=== PATIENT | female | born 1985 | race African-American/Black ===

== ENCOUNTER 2022-09-12 14:25 | Emergency (ER) | payer BC ==
--- OUTSIDE RECORDS SUMMARY | 2022-09-12 14:28 | XMS REPORT | Continuity of Care Document ---
:1985 Author Organization [facility] t Address [address] [place] [address] Care Team Providers Name Role Phone Daniel Jolly A Attending Clinician Unavailable Daniel Jolly A Admitting Clinician Unavailable Physician, No Primary or Family Admitting Clinician Unavaila ble Payers Payer Name Policy Type Policy Number Effective Date Expiration Date S ource Problems This patient has no known problems. Allergies, Adverse Reactions, Alerts Allergy Allergy Status Severity Reaction(s) Onset Inactive Treating Comm ents Source Name Type Date Date Clinician No Known DA Active U 2020-0 [facility] 00:[facility]: e 00 [facility] No Known DA Active U 2020-0 [facility] 00:[facility]: e 00 [facility] No Known DA Active U 2019-0 [facility] 00 [facility] No Known DA Active U 2019-0 [facility] [address] [place] [address] No Known DA Active U 2015- [facility] [address] [place] [address] Medications This patient has no known medications. Procedures Procedure Date / Time Performed Performing Clinician Radha castillo [id number] 2020-02-11 00:00:00 JOSSELIN [facility] [id number] 2020-02-11 00:00:00 JOSSELIN [facility] [id number] 2020-02-11 00:00:00 JOSSELIN ELY [facility] Encounters Start End Encounter Admission Attending Care Care Encounter Source Date/Time Date/Time Type Type Clinicians Facility Department ID 2020-02-11 Inpatient LLOYD Jolly JACQUE [id number] [facility] 08:53:00 [facility] 2019-09-16 Inpatient LLOYD Bates RADI [id number] [facility] 15:00:00 [facility] 2020-08-04 2020-08-04 Outpatient SOLIS BatesBM ALDAIR [id number] [facility] 12:00:00 12:00:00 Daniel 42 [facility] Results Test Description Test Time Test Comments Results Result Comments Source HIV 1 RNA PCR QUANT 2020-02-17 12:54:00 Test Item Value Reference Range Interpretation Comme nts HIV 1 RNA PCR (LOG 10) (test code TNP () INFCE Result Units: ctb66pcoh/mLUnable to = CYWAHZ60) calculate resul t since non-numeric resultobtained for component test.Performed At: Lab[address] [id number] ra Eric RODRIGUEZ Ph:[phone] HIV-1 RNA BY PCR, QUANT (test code <20 () INFCE Result Units: copies/mLHIV-1 RNA not = HIVRNAPCRT) detectedThe re portable range for this assay is 20 to 10,000,000copies HIV-1 RNA/mL. IS CONSENT FORM SIGNED FOR HIV TESTING? YCD4 HELPER T-CELL [id number] 14:40:00 Test Item Value Reference Range Interpretation Comments LYMPHOCYTE ABSOLUTE ST (test 1.2 x10E3/uL 0.7-3.1 code = LYMPHA) CD4CD8 RATIO (test code = 0.77 0.92-3.72 L CD4CD8) PERCENT CD4 HELPER CELLS (test 35.1 % 30.8-58.5 code = CD4P) ABSOLUTE CD4+ CELLS (test code = 421 /uL 359-1519 CD4A) % CD8 (SUPPRESOR T-CELLS) (test 45.3 % 12.0-35.5 H code = CD8P) ABSOLUTE CD8+ CELLS (test code = 544 /uL 109-897 CD8A) HGB [id number] 04:41:00 Test Item Value Reference Range Interpretation Comments HEMOGLOBIN (test code = HGB) 10.9 g/dL 10.7-13.9 N HEMATOCRIT (test code = HCT) 33.1 % 32.1-42.1 N AG HEPATITIS B [id number] 11:05:00 Test Item Value Reference Range Interpretation Comments AG HEPATITIS B SURFACE (test code NONREACTIVE NONREACTIVE = HBSAG) AB HEPATITIS C [id number] 11:05:00 Test Item Value Reference Range Interpretation Comments AB HEPATITIS C (test code = NONREACTIVE NONREACTIVE HCVAB) SIGNAL TO CUTOFF (test code = 0.10 <0.80 N CUTOFF) AB [id number] 11:05:00 Test Item Value Reference Range Interpretation Comments AB TREPONEMA (test code = TREPAB) NONREACTIVE NONREACTIVE AG HEPATITIS B [id number] 10:49:00 Test Item Value Reference Range Interpretation Comments AG HEPATITIS B SURFACE (test code NONREACTIVE NONREACTIVE = HBSAG) AB HEPATITIS C [id number] 10:49:00 Test Item Value Reference Range Interpretation Comments AB HEPATITIS C (test code = HCVAB) NONREACTIVE SIGNAL TO CUTOFF (test code = CUTOFF) <0.80 AB [id number] 10:49:00 Test Item Value Reference Range Interpretation Comments AB TREPONEMA (test code = TREPAB) NONREACTIVE NONREACTIVE Coronavirus 2018 nCoV [id number] 10:29:00 Test Item Value Reference Range Interpretation Comments Coronavirus 2019 Negative Negative RESULTS CA LLED TO [facility] Bedside (test MREAD CLARK K & CONFIRMED? code = YESBY F.LAB.ELB 1 02/11/20 COVNONPUIBED) 1029 This resu lt does not rule out co-inf ections with otherpatho gens. * False negative results may occur if a spec imen isimproperly co llected, transported or handled. False negativer esults may also occur if amplification i nhibitors arepresent in t he specimen or if inadequat e levels of virusesare pres ent in the specimen. Negat jose results should beconsid ered in the context of a pa tient's recent exposure s,history and the presenc e of clinical signs and symptomsconsist ent with COVID-19. * Neg ative results should be treated as presumptive andtested with an alterna tive FDA authorized mole cular assayif necessa ry for clinical managm ent, including infectioncontro l. * As with any molecu lar test,mutations within the target regions Huynh ID NOW COVID-[address] could affect primeran d/or probe binding resulti ng in failure to dete ct therescence of the virus.TEST PERF ORMED UNDER AN EMERGENCY US E AUTHORIZATION F ROM FDA CBC W/AUTO [id number] 09:53:00 Test Item Value Reference Range Interpretation Comments WHITE BLOOD CELL (test code = WBC) 12.4 K/mm3 6.6-12.1 H RED BLOOD CELL (test code = RBC) 3.97 M/mm3 3.45-5.01 N HEMOGLOBIN (test code = HGB) 12.8 g/dL 10.7-13.9 N HEMATOCRIT (test code = HCT) 37.8 % 32.1-42.1 N MEAN CELL VOLUME (test code = MCV) 95 fL 84.1-94.8 H MEAN CELL HGB (test code = MCH) 32.2 pg 27-35 N MEAN CELL HGB CONCETRATION (test 33.9 gm/dL 32.2-34.1 N code = MCHC) RED CELL DISTRIBUTION WIDTH (test 12.1 % 12.4-16.5 L code = RDW) PLATELET COUNT (test code = PLT) 223 K/mm3 133-385 N MEAN PLATELET VOLUME (test code = 11.9 fl 9.1-12.7 N MPV) NEUTROPHIL % (test code = NT%) 76.0 % 56.5-79.4 N LYMPHOCYTE % (test code = LY%) 16.7 % 14.3-34.3 N MONOCYTE % (test code = MO%) 6.0 % 5.1-10.4 N EOSINOPHIL % (test code = EO%) 0.3 % 0.1-3.0 N BASOPHIL % (test code = BA%) 0.2 % 0.1-1.0 N NEUTROPHIL # (test code = NT#) 9.4 K/mm3 LYMPHOCYTE # (test code = LY#) 2.1 K/mm3 MONOCYTE # (test code = MO#) 0.8 K/mm3 EOSINOPHIL # (test code = EO#) 0.04 K/mm3 BASOPHIL # (test code = BA#) 0.0 K/mm3 RBC MORPHOLOGY REQUIRED (test code NORMAL NORMAL = RBCM) PLATELET MORPHOLOGY REQUIRED (test NORMAL NORMAL code = PLTMR) - US FLW [id number] 16:29:00 Patient Name: JÚNIOR JONAS Unit No: [id number] EXAMS: CPT CODE: [id number] US FLW [id number] [facility] [address], [place] [address] OBSTETRICAL ULTRASOUND REPORT Pat. Name: JÚNIOR JONAS Pat.No: [id number] Study Date: 02/05/2020 3:33pm , Age: 08 1985, 34 Pregnancies: 3, Para 2LMP: Unknown GA by 1st: 38w0d GA by US: 37w1d GA Selected: 38w0d (From Known E) RUTHIE: 02/19/2020 Refer ring MD: DANIEL JOLLY [employer] Leadership: Nuris Quintero RDMS CPT4: USPREGFU Admitting MD: DANIEL JOLLY Hist/Ind: 2ND SCAN 38WKS POSISTION MEASUREMENTS AGE GROWTH EVALUATION Measurement GA Range Srce %for GA Ratios ----- ---- ------- BPD 9.1 cm 37w3d (54q1w-47a5h)Hadl BPD 42% FL/BPD 0.80 (0.71 - 0.87) HC 32.3 cm 36w0d (28d9r-27f8a) Hadl HC 14% FL/AC 0.20 (0.20 -0.24) APD 11.5 cm APD HC/AC 0.90 (0.90 - 1.09) TAD 11.3 cm TAD CI 0.85 (0.70 - 0.86) AC 35.8 cm 40w0d (50y8q-43l5g) Hadl AC 86% FL 7.3 cm 37w2d (45e3v-44g1c) Hadl FL 39% HL 6.6 cm 38w2d (31c4g-67t6d) Dc HL 55% GA for sonogram 37w1d (65e6k-43i9c) Weight Estimate: based on (BPD,HC,AC,FL) HadlockWeight: 3505 gm (0811-5469) Hadlo : 7lbs, 11oz Normal: 3030 gm (4647-8957) Brenn Wt% 83% for 38.0 wks Heart Rate: 137 bpm Amniotic Fluid Index: 12.7cm (07.3-23.9) Q1: 0.0cm Q2: 5.5cm Q3: 1.6cm Q4: 5.6cm CLINICAL SUMMARY Typeof Gestation: Harris Intrauterine in vertex presentation. size is borderline large for gestational age. growth: Borderline LGA fetus (75%-90%) motion and organs seen: somatic activity observed body and limb movements seen Regular cardiac rhythm observed abnormalities observed: KIDNEYS APPEAR WITHIN NORMAL LIMITS Placental location: [facility] NAME: JÚNIOR JONAS Radiology Department PHYS: Daniel Narvaez MD [address] : 1985 AGE: 34 SEX: F [place], [place] [address] LOC: F.RAD PHONE #: [phone] EXAM DATE: 02/05/2020 STATUS: REG CLI FAX #: [phone] RAD NO: Page 1 Signed Report (CONTINUED) Patient Name: JÚNIOR JONAS Unit No: [id number] EXAMS: CPT CODE: [id number] [place] [address] (Continued) Anterior Placental maturity : Grade 2 There is no evidence of placenta previa. Amniotic fluid volume is normal. Uterus and adnexa: No significant abnormality is seen. Thank you for allowing us to participate in the care of this patient. Annamarie Lopez M.D. Electronic Signature 02/05/2020 04:29pm at 1629 Reported and signed by: Carrol Lopez MD CC: Daniel Jolly Technologist: Nuris Quintero RDMS Probe: Trnscrbd D/ (1629) t.SDR.CER Orig Print D/T: S: 02/05/2020 (3518) [facility] NAME: JÚNIOR JONAS KORINA Radiology Department PHYS: Daniel Narvaez MD [address] : 1985 AGE: 34 SEX: F [place], [place] [address] LOC: ArlinRAD PHONE #: [phone] EXAM DATE: 02/05/2020 STATUS: REG CLI FAX #: [phone] RAD NO: Page2 Signed Report Patient Name: JÚNIOR JONAS Unit No: [id number] EXAMS: CPT CODE: [id number] [place] [address] (Continued) [facility] NAME: PRITESHJÚNIOR Radiology Department PHYS: Daniel Narvaez MD [address] : 1985 AGE: 34 SEX: F [place], [place] [address] LOC: ArlinRAD PHONE #: [phone] EXAM DATE: 02/05/2020 STATUS: REG CLI FAX #: [phone] RAD NO: Page 3 Signed Report- US PREG AFTER [id number] 17:57:00 Patient Name: JÚNIOR JONAS Unit No: [id number] EXAMS: CPT CODE: [id number] US PREG AFTER TRI [address] [facility] [address], [place] [address] OBSTETRICAL ULTRASOUND REPORT Pat. Name: JÚNIOR JONAS Pat. No: [id number] Study Date: 09/16/2019 3:55pm , Age: 08 1985, 34 LMP: Unknown GA by US: 18w1d GA Selected: 17w5d (From Known E) RUTHIE: 02/19/2020 Referring MD: DANIEL JOLLY [employer]: Iraida Medel RDMS CPT4: [id number] Admitting MD: DANIEL JOLLY Hist/Ind: SCAN 1 17WKS SIZE@DATES ----- MEASUREMENTS AGE GROWTH EVALUATION Measurement GA Range Srce %for GA Ratios ----- ---- ------- BPD 3.9 cm 17w5d (99y3w-62z1u) Hadl BPD 49% FL/BPD 0.69 HC 14.9 cm 17w6d (08u5q-76l4y) Hadl HC 56% FL/AC 0.20 APD 4.3 cm APD HC/AC 1.10 (1.08 - 1.27) TAD 4.3 cm TAD CI 0.77 (0.70- 0.86) AC 13.5 cm 18w5d (50k9s-38b8u) Hadl AC 71% FL 2.7 cm 17w6d (92a2k-63n5y) Hadl FL 58% HL 2.7 cm 18w4d (22v0u-30a0x) Dc HL 65% GA for sonogram 18w1d (29j0q-05c5u) Weight Estimate: based on (BPD,HC,AC,FL) Hadlock Weight: 245 gm (209-280) Hadlock : 0lbs, 8oz Cervical Length: 3.6 cm Heart Rate: 151 bpm CLINICAL SUMMARY Type of Gestation: Harris Intrauterine in breech presentation. size is appropriate for gestational age. motion and organs seen: heart motion seen body and limbmovements seen Four chamber heart observed Left ventricular outflow tract (LVOT) seen Right ventricular outflow tract (RVOT) seen Umbilical cord insertion in fetus seen stomach, Renal Fossa, Bladder and Spine seen Three vessel umbilical cord noted abnormalities observed: Bilateral renal pelviectasis 4 mm left and right Placental location: Anterior Placental maturity : Grade 1 Thereis no evidence of placenta previa. [facility] NAME: JÚNIOR JONAS Radiology Department PHYS: Daniel Narvaez MD [address] : 1985 AGE: 34 SEX: [place] [address] LOC: ArlinRAD PHONE #: [phone] EXAM DATE: 09/16/2019 STATUS: REG [place] #: [phone] RAD NO: Page 1 Signed Report (CONTINUED) Patient Name: JÚNIOR JONAS HUI Unit No: [id number] EXAMS: CPT CODE: [id number] US PREG AFTER 1ST TRI [address]5789 (Continued) Amniotic fluid volume is normal. Uterus and adnexa: No significant abnormality is seen. 'FU US is advised Norma Talley M.D. Electronic Signature 09/16/2019 05:57pm at 1757 Reported and signed by: Norma Talley MD CC: Daniel Jolly Technologist: Iraida Medel RDMS Probe: Trnscrbd D/ (1756) t.KATHLEENR.NMG Orig Print D/T: S: 09/16/2019 (1755) [facility] NAME: JÚNIOR JONAS Radiology Department PHYS:Daniel Narvaez MD [address] : 1985 AGE: 34 SEX: F [place] [address] LOC: ArlinRAD PHONE #: [phone] EXAM DATE: 09/16/2019 STATUS: REG CLI FAX #: [phone] RAD NO: Page 2 Signed Report Patient Name: JÚNIOR JONSA Unit No: [id number] EXAMS: CPT CODE:[id number] US PREG AFTER 1ST TRI [address]3533 (Continued) [facility] NAME: BRIANNA JONAS Radiology Department PHYS: Daniel Narvaez MD [address] : 1985 AGE: 34 SEX:F [place] [address] LOC: Lorin.RAD PHONE #: [phone] EXAM DATE: 09/16/2019 STATUS: REG CLI FAX #: [phone] RAD NO: Page 3 Signed ReportCERVIX [id number] 14:15:00 RUN DATE: 11/01/18 [facility] PAGE 1 RUN TIME: 1534 Specimen Inquiry RUN USER: INTERFACE --PATIENT: JÚNIOR JONAS LOC: VIVEK U #: [id number] AGE/SX: 33/F ROOM: RE10/26/18REG DR: Daniel Jolly MD : [birth year] BED: DIS: STATUS: [facility] TLOC: SPEC #: [id number] RECD: 10/26/18 STATUS: POPEYE GRANADOS #: [id number] PUNEET: 10/26/18- SUBM DR: Daniel Jolly MD ENTERED: 10/26/18 SP TYPE: CERVCON OTHR DR: ORDERED: LEVEL V SURGICA CODES: [id number] - UTERINE CERVIX PROCEDURES: LEVEL V SURGICA (Incomplete) TISSUES: UTERINE CERVIX, NOS - CERVICAL CONE BX STITCH AT 12:00 CLINICAL HISTORY 33 year old, high-grade dysplasia of cervix, HIV+ (wpd) FINAL DIAGNOSIS Cervix, cone biopsy: - high-gradesquamous intraepithelial lesion (MALACHI 3) with endocervical gland involvement present in the right half portion of the cone (6:00 to 12:00) - ectocervical margin focally positive for high grade dysplasiaat 6:00 - 8:00 - all other exocervical margins negative for high grade dysplasia - all endocervical biopsy margins negative for high grade dysplasia - chronic inflammation - P16 immunostain performed on blocks A, B, C, and E COMMENT: The technical components were performed at [facility] [place], [address] [place] [address], [address], [place] [address]. The interpretation is provided by [facility], [address] [place] [address]. Controls received from [facility] stained appropriately. Tissue code 1 CPT code(s): 09801, 68189-15, 75472-57 x3 cds/kr dt: 10/31/18 cds/wpd dT;11/01/18 GROSS DESCRIPTION ANATOMIC SOURCE OF TISSUE (per Requisition): Cervical cone biopsy, stitch@ 12:00, HIV+ The specimen is received in a formalin-filled container, labeled with the patient's name and designated "cervical cone biopsy, stitch @ 12:00". The specimen consists of a C-shaped portionof 4 x 1.5 x 0.7 cm red cervical mucosa with underlying tissue. The margin is inked black and endocervical margin is inked red. It is CONTINUED ON NEXT PAGE RUN DATE: 11/01/18 [facility] PAGE 2 RUN TIME: 1534 Specimen Inquiry RUN USER: INTERFACE SPEC #: [id number] PATIENT: JÚNIOR JONAS #[id number] (Continued) GROSS DESCRIPTION (Continued) sectioned and submitted in toto in A - 12:00 to 2:00, B - 2:00 to 4:00, C - 4:00 to 6:00, D - 6:00 to 8:00, E - 8:00 to 10:00 and F - 10:00 to 12:00. hz/wpd 10/26/18 MICROSCOPIC DESCRIPTION There is high grade dysplasia (MALACHI 3) with endocervical gland involvementin the right half portion of the cone (6:00 to 12:00). The exocervical margin at 6:00 to 8:00 is focally positive for high grade dysplasia. All other exocervical margins and all endocervical margins are negative for high grade dysplasia. P16 immunsotains are performed on blocks A, B, C, and E and support the diagnosis given below. madeline/diony dt: [id number] Signed Urban Fox 11/01/18 1415 END OF REPORT CHEMISTRY 7 [id number] 12:54:00 Test Item Value Reference Range Interpretation Comments SODIUM (test code = NA) 138 mEq/L 135-145 N POTASSIUM (test code = K) 4.5 mEq/L 3.5-5.0 N CHLORIDE (test code = CL) 104 mEq/L 100-115 N CARBON DIOXIDE (test code = CO2) 28 mEq/L 22-31 N ANION GAP (test code = GAP) 10.20 10-20 N GLUCOSE (test code = GLU) 92 mg/dL 65-110 N BLOOD UREA NITROGEN (test code = 10 mg/dL 7-18 N BUN) GLOMERULAR FILTRATION RATE (test 128 ml/min >60 N code = GFR) CREATININE (test code = CREAT) 0.6 mg/dL 0.5-1.0 N CALCIUM (test code = CA) 9.0 mg/dL 8.4-10.2 N HCG SERUM [id number] 12:54:00 Test Item Value Reference Range Interpretation Comments HCG SERUM QUAL (test code = HCGQL) NEGATIVE CHEMISTRY 7 [id number] 12:53:00 Test Item Value Reference Range Interpretation Comments SODIUM (test code = NA) mEq/L 135-145 POTASSIUM (test code = K) mEq/L 3.5-5.0 CHLORIDE (test code = CL) mEq/L 100-115 CARBON DIOXIDE (test code = CO2) mEq/L 22-31 ANION GAP (test code = GAP) 10-20 GLUCOSE (test code = GLU) mg/dL 65-110 BLOOD UREA NITROGEN (test code = BUN) mg/dL 7-18 CREATININE (test code = CREAT) mg/dL 0.5-1.0 CALCIUM (test code = CA) mg/dL 8.4-10.2 HCG SERUM [id number] 12:53:00 Test Item Value Reference Range Interpretation Comments HCG SERUM QUAL (test code = HCGQL) NEGATIVE CBC W/AUTO [id number] 12:43:00 Test Item Value Reference Range Interpretation Comments WHITE BLOOD CELL (test code = WBC) 6.6 K/mm3 6.6-12.1 N RED BLOOD CELL (test code = RBC) 4.17 M/mm3 3.45-5.01 N HEMOGLOBIN (test code = HGB) 12.9 g/dL 10.7-13.9 N HEMATOCRIT (test code = HCT) 39.6 % 32.1-42.1 N MEAN CELL VOLUME (test code = MCV) 95 fL 84.1-94.8 H MEAN CELL HGB (test code = MCH) 30.9 pg 27-35 N MEAN CELL HGB CONCETRATION (test 32.6 gm/dL 32.2-34.1 N code = MCHC) RED CELL DISTRIBUTION WIDTH (test 12.4 % 12.4-16.5 N code = RDW) PLATELET COUNT (test code = PLT) 199 K/mm3 133-385 N IMMATURE PLATELET FRACTION (test 0.0 % 0.0-10.8 N code = IPF) MEAN PLATELET VOLUME (test code = 12.6 fl 9.1-12.7 N MPV) NEUTROPHIL % (test code = NT%) 56.5 % 56.5-79.4 N LYMPHOCYTE % (test code = LY%) 36.0 % 14.3-34.3 H MONOCYTE % (test code = MO%) 5.3 % 5.1-10.4 N EOSINOPHIL % (test code = EO%) 1.5 % 0.1-3.0 N BASOPHIL % (test code = BA%) 0.5 % 0.1-1.0 N NEUTROPHIL # (test code = NT#) 3.7 K/mm3 LYMPHOCYTE # (test code = LY#) 2.4 K/mm3 MONOCYTE # (test code = MO#) 0.4 K/mm3 EOSINOPHIL # (test code = EO#) 0.10 K/mm3 BASOPHIL # (test code = BA#) 0.0 K/mm3 RBC MORPHOLOGY REQUIRED (test code NORMAL NORMAL = RBCM) PLATELET MORPHOLOGY REQUIRED (test NORMAL NORMAL code = PLTMR)
--- NOTE | 2022-09-12 17:16 | EDPHYS ---
Physician Documentation [facility] Name: Jose Calvert Age: 37 yrs Sex: Female : 1985 Arrival Date: 09/12/2022 Time: 14:26 Bed 9 Private MD: CHRISTI Physician Darcy Orellana HPI: 09/12 16:00 This 37 yrs old Black Female presents to ER via Ambulatory with complaints of Allergic jh7 Reaction. 16:00 The patient presents with difficulty swallowing, itching. Onset: The symptoms/episode jh7 began/occurred 2 day(s) ago. Associated signs and symptoms: Pertinent negatives: chest pain, fever, rash, shortness of breath, swelling, Syncope. Possible causes: shellfish. At home the patient or guardian has treated the symptoms with nothing. The patient states that she ate some shrimp on [place]. States that over the past few years she has noticed that her throat becomes itchy after eating shrimp. Reports that her uvula is slightly on enlarged, her throat is itchy, and she has some mild difficulty swallowing. Denies any shortness of breath or chest pain.. MUSEUM LIBRARIAN: 17:04 LMP N/A - Irregular menses ap3 Historical: - Allergies: 15:56 SHELLFISH; ss - Home Meds: 15:56 None [Active]; ss - Immunization history:: Client reports receiving the 2nd dose of the Covid vaccine. - Social history:: Smoking status: Patient denies any tobacco usage or history of. ROS: 16:00 Constitutional: Negative for fever, chills, and weight loss, Eyes: Negative for injury, jh7 pain, redness, and discharge, Neck: Negative for injury, pain, and swelling, Cardiovascular: Negative for chest pain, palpitations, and edema, Respiratory: Negative for shortness of breath, cough, wheezing, and pleuritic chest pain, Abdomen/GI: Negative for abdominal pain, nausea, vomiting, diarrhea, and constipation, Back: Negative for injury and pain, MS/Extremity: Negative for injury and deformity, Skin: Negative for injury, rash, and discoloration, Neuro: Negative for headache, weakness, numbness, tingling, and seizure. 16:00 ENT: Positive for sinus pain. 16:00 All other systems are negative. Exam: 16:00 ENT: Posterior pharynx: Uvula: Uvula appears mildly enlarged. No other airway [facility] swelling, drooling, or any signs of obstruction noted.. 18:38 Head/Face: Normocephalic, atraumatic. Neck: Trachea midline, no thyromegaly or masses jh7 palpated, and no cervical lymphadenopathy. Supple, full range of motion without nuchal rigidity, or vertebral point tenderness. No Meningismus. Cardiovascular: Regular rate and rhythm with a normal S1 and S2. No gallops, murmurs, or rubs. Normal PMI, no JVD. No pulse deficits. Respiratory: Lungs have equal breath sounds bilaterally, clear to auscultation and percussion. No rales, rhonchi or wheezes noted. No increased work of breathing, no retractions or nasal flaring. Abdomen/GI: Soft, non-tender, with normal bowel sounds. No distension or tympany. No guarding or rebound. No evidence of tenderness throughout. Skin: Warm, dry with normal turgor. Normal color with no rashes, no lesions, and no evidence of cellulitis. MS/ Extremity: Pulses equal, no cyanosis. Neurovascular intact. Full, normal range of motion. Neuro: Awake and alert, GCS 15, oriented to person, place, time, and situation. Motor strength 5/5 in all extremities. Sensory grossly intact. Normal gait. Vital Signs: 15:51 BP 144 / 83; Pulse 78; Resp 16; Temp 97.8(TE); Pulse Ox 100% on R/A; Weight 81.65 kg; ss Height 5 ft. 6 in. (167.64 cm); Pain 8/10; 15:51 Body Mass Index 29.05 (81.65 kg, 167.64 cm) MDM: 14:28 Patient medically screened. [facility] 17:10 Differential diagnosis: anaphylaxis, angioedema, urticaria, Allergic reaction. Data [facility] reviewed: vital signs, nurses notes. Data interpreted: Pulse oximetry: is 100 %. Interpretation: normal. Counseling: I had a detailed discussion with the patient and/or guardian regarding: the historical points, exam findings, and any diagnostic results supporting the discharge/admit diagnosis, to return to the emergency department if symptoms worsen or persist or if there are any questions or concerns that arise at home. Response to treatment: the patient's symptoms have resolved after treatment. ED course: Patient symptoms resolved after medication administration. She was advised to only start steroid pack tomorrow morning if symptoms returned. ER precautions given if she develops shortness of breath, inability to swallow, or any other concerning symptoms. The patient understood the plan of care.. Administered Medications: 17:02 Drug: SOLU-Medrol (methylPREDNISolone sodium succinate) 125 mg Route: IM; Site: right ap3 gluteus; 17:02 Drug: Benadryl (diphenhydrAMINE) 25 mg Route: IM; Site: right gluteus; ap3 17:23 Follow up: Response: No adverse reaction ap3 17:02 Drug: Pepcid (famotidine) 20 mg Route: PO; ap3 17:23 Follow up: Response: No adverse reaction ap3 Disposition Summary: 09/12/22 17:14 Discharge Ordered Location: Home jh7 Problem: new jh7 Symptoms: have improved jh7 Condition: Stable jh7 Diagnosis - Allergic Reaction jh7 Followup: 7 - With: Private Physician - When: 2 - 3 days - Reason: Recheck today's complaints Discharge Instructions: - Discharge Summary Sheet 7 - Food Allergy jh7 - Seafood Allergy jh7 Forms: - Medication Reconciliation Form 7 - Thank You Letter jh7 Prescriptions: - Medrol (Gómez) 4 mg Oral Tablets, Dose Pack - take 1 tablet by ORAL route as directed - follow package instructions; 1 jh7 packet; Refills: 0, Product Selection Permitted Addendum: 09/15/2022 22:39 STAFF ATTESTATION STATEMENT: I was immediately available onsite in the emergency s d2 department for consultation in the care of this patient. I did not see or examine this patient. Darcy Orellana MD. Signatures: Maida Guerra RN RN ss Yenni Owens RN RN ap3 Lindsey Shaw, PRODUCTION CLERKS SUPERVISOR PRODUCTION [employer]ER[employer] SUPERVISOR [facility] Darcy Orellana MD MD sd2 Corrections: (The following items were deleted from the chart) 09/12 18:14 16:00 This 37 yrs old Black Female presents to ER via Ambulatory with complaints of jh7 Allergic Reaction. jh7 18:39 16:00 ENT: Posterior pharynx: Uvula: jh7 7
--- NOTE | 2022-09-12 17:16 | ER ---
Nurse's Notes [facility] Name: Jose Calvert Age: 37 yrs Sex: Female : 1985 Arrival Date: 09/12/2022 Time: 14:26 Bed 9 Private MD: Diagnosis: Allergic Reaction Presentation: 09/12 15:51 Chief complaint: Patient states: throat pain/ swelling that began New Years Day after ss eating shrimp. Coronavirus screen: Client denies travel out of the [place] in the last 14 days. Ebola Screen: Patient denies exposure to infectious person. Patient denies travel to an Ebola-affected area in the 21 days before illness onset. Onset: The symptoms/episode began/occurred 2 day(s) ago. Anaphylaxis evaluation, no signs or symptoms of anaphylaxis were noted. Initial Sepsis Screen: Does the patient meet any 2 criteria? No. Patient's initial sepsis screen is negative. Does the patient have a suspected source of infection? No. Patient's initial sepsis screen is negative. Risk Assessment: Do you want to hurt yourself or someone else? Patient reports no desire to harm self or others. Onset of symptoms was September 11, 2021. 15:51 Method Of Arrival: Ambulatory ss 15:51 Acuity: HORACE 4 ss Triage Assessment: 17:03 General: Appears in no apparent distress. Behavior is calm, cooperative, appropriate ap3 for age. 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 - Social history:: Smoking status: Patient denies any tobacco usage or history of. Screenin:03 [facility] ED Fall Risk Assessment (Adult) History of falling in the last 3 months, ap3 including since admission. Abuse screen: Denies threats or abuse. Nutritional screening: No deficits noted. Tuberculosis screening: No symptoms or risk factors identified. Assessment: 17:03 Pain: Denies pain. Respiratory: Airway is patent Respiratory effort is even, unlabored, ap3 Breath sounds are clear. Vital Signs: 15:51 BP 144 / 83; Pulse 78; Resp 16; Temp 97.8(TE); Pulse Ox 100% on R/A; Weight 81.65 kg; Height 5 ft. 6 in. (167.64 cm); Pain 8/10; 15:51 Body Mass Index 29.05 (81.65 kg, 167.64 cm) ED Course: 14:26 Patient arrived in ED. am2 14:28 Lindsey Shaw FNP is [facility] 14:28 Darcy Orellana MD is Attending Physician. 7 15:55 Triage completed. 15:56 Arm band placed on right wrist. 17:03 Yenni Owens, RN is Primary Nurse. ap3 17:04 Patient has correct armband on for positive identification. Bed in low position. Call ap3 light in reach. Side rails up X 1. Pulse ox on. NIBP on. Door closed. Noise minimized. 17:22 No provider procedures requiring assistance completed. Patient did not have IV access ap3 during this emergency room visit. Administered Medications: 17:02 Drug: SOLU-Medrol (methylPREDNISolone sodium succinate) 125 mg Route: IM; Site: right ap3 gluteus; 17:02 Drug: Benadryl (diphenhydrAMINE) 25 mg Route: IM; Site: right gluteus; ap3 17:23 Follow up: Response: No adverse reaction ap3 17:02 Drug: Pepcid (famotidine) 20 mg Route: PO; ap3 17:23 Follow up: Response: No adverse reaction ap3 Medication: 17:04 VIS not applicable for this client. ap3 Outcome: 17:14 Discharge ordered by . 7 17:23 Discharged to home ambulatory. ap3 17:23 Condition: good 17:23 Discharge instructions given to patient, Instructed on discharge instructions, follow up and referral plans. medication usage, Demonstrated understanding of instructions, follow-up care, medications, Prescriptions given X 1. 17:23 Patient left the ED. ap3 Signatures: Maida Guerra RN RN Yenni Calvert 2 Yenni Owens RN RN ap3 Lindsey Shaw FNP [place] [phone]
[2022-09-12 18:08] VITALS: BP 144/83; TEMP 97.8; O2SAT 100
== END 2022-09-12 17:23 | disposition home or self-care (01) ==
LOC: ER 14:25
DX: R13.10 Dysphagia, unspecified (principal); R07.0 Pain in throat; Z91.013 Allergy to seafood
CPT/HCPCS: 96372; 99283